=== PATIENT | male | born 1940 | race Caucasian/White ===

== ENCOUNTER → 2020-08-13 | Outpatient (CLI) | payer MEDICARE | END | disposition home or self-care (01) | LOC: RAH 09:45 | PROVIDERS: ATTEND Dermatology | DX: M25.48 Effusion, other site (principal); I80.8 Phlebitis and thrombophlebitis of other sites | CPT/HCPCS: 93971 ==

== ENCOUNTER 2023-07-24 18:22 | Emergency (ER) | payer MEDICARE ==
[~2023-07-24] VITALS: Ht 188 cm; Wt 86.2 kg
[2023-07-24 18:41] VITALS: BP 195/113; PULSE 76; RESP 16
[2023-07-24 19:16] LABS: BASOPHILS # (AUTO) 0.04 K/uL (0.00-0.20); BASOPHILS % (AUTO) 0.4 % (0.0-5.0); EOSINOPHILS # (AUTO) 0.03 K/uL (0.00-0.70); EOSINOPHILS % (AUTO) 0.3 % (0.0-8.0); HEMATOCRIT 48.2 % (42-54); IMMATURE GRANULOCYTE ABSOLUTE 0.05 K/uL (0-1); LYMPHOCYTES # (AUTO) 0.8 K/uL (1.0-4.8); LYMPHOCYTES % (AUTO) 6.6 % (21.0-51.0); MEAN CORPUSCULAR HGB CONC 34.4 g/dL (32.0-36.0); MEAN CORPUSCULAR VOLUME 89.9 fL (79-99); MONOCYTES # (AUTO) 0.7 K/uL (0.1-1.0); MONOCYTES % (AUTO) 6.5 % (3.0-13.0); NEUTROPHILS # (AUTO) 9.7 K/uL (1.8-7.7); NEUTROPHILS % (AUTO) 85.8 % (40.0-77.0); PLATELET COUNT (AUTO) 140 K/uL (130-400); RED BLOOD CELL COUNT(AUTO) 5.36 MIL/uL (4.50-6.20); RED CELL DISTRIBUTION WIDTH 12.6 % (11.0-15.5); WHITE BLOOD COUNT (AUTO) 11.3 K/uL (4.8-10.8)
[2023-07-24 19:33] LABS: CREATININE 1.1 mg/dL (0.5-1.5); POTASSIUM 4.4 mmol/L (3.5-5.1)
[2023-07-24 19:37] LABS: ALBUMIN 3.9 g/dL (3.5-5.0); BILIRUBIN,TOTAL 1.4 mg/dL (0.2-1.0); TOTAL PROTEIN, SERUM 8.3 g/dL (6.0-8.3)
[2023-07-29] MEDS ORDERED: FURO20TA4 PO (23:59)
[2023-07-29] MEDS ORDERED: APIX5TAB PO (23:59)
[2023-07-30] MEDS ORDERED: METO-391 PO
[2023-07-30] MEDS ORDERED: LISI20TA24 PO (00:01)
[2023-07-30] MEDS ORDERED: PRAV20TA4 PO (00:01)
[2023-07-30] MEDS ORDERED: AMIO200T68 PO (00:02)
== END 2023-07-24 22:48 | disposition left against medical advice (07) ==
LOC: EDH 18:22
DX: R07.9 Chest pain, unspecified (principal); Z53.21 Procedure and treatment not carried out due to patient leaving prior to being seen by health care provider
CPT/HCPCS: 36415; 71045; 80053; 83735; 84484; 85025; 93005; 99281

== ENCOUNTER → 2023-08-10 | Outpatient (CLI) | payer MEDICARE ==
[~2023-08-10] MED LIST: AMIO200T68 PO; FINA5TAB41 PO; FURO20TA4 PO; LISI20TA24 PO; METO-391 PO; PRAV20TA4 PO; REGADENOSON 0.4 MG/5 ML PF SYG IVP ONE; TAMS-1 PO
== END | disposition home or self-care (01) ==
LOC: SHCH 08:14
PROVIDERS: ATTEND Internal Medicine Cardiovascular Disease
DX: I44.7 Left bundle-branch block, unspecified (principal); R07.9 Chest pain, unspecified
CPT/HCPCS: 78452; 96374; 93017; J2785; A9500 ×2

== ENCOUNTER → 2024-07-17 | Outpatient (CLI) | payer MEDICARE ==
[~2024-07-17] MED LIST changes: -AMIO200T68 PO; +APIX5TAB PO; +DRON400T7 PO; -METO-391 PO; +METO50TA9 PO; -REGADENOSON 0.4 MG/5 ML PF SYG IVP ONE
[2024-07-17 16:37] LABS: CREATININE 1.1 mg/dL (0.5-1.3); POTASSIUM 4.4 mmol/L (3.5-5.1)
== END | disposition home or self-care (01) ==
LOC: LAB 14:32
PROVIDERS: ATTEND Student in an Organized Health Care Education/Training Program
DX: I44.7 Left bundle-branch block, unspecified (principal)
CPT/HCPCS: 36415; 80048

== ENCOUNTER → 2024-07-23 | Outpatient (CLI) | payer MEDICARE ==
[~2024-07-23] MED LIST changes: +IOHEXOL 350 MG/ML 100ML INFUS..BTL IV ONE
--- NOTE | 2024-07-23 13:06 | HMCIMG ---
CT CARDIAC ANGIO W/CONT. CCTA REASON: LEFT BUNDLE BRANCH BLOCK, UNSPEC COMPARISON: None TECHNIQUE: Images are obtained through the heart in the axial plane before and during bolus IV contrast infusion, 100 cc Omnipaque 350. 2-D and 3-D multiplanar reconstruction images were then performed. The injection had to be repeated once due to motion artifact on the first sequence, total contrast volume was 200 cc. FINDINGS: This dictation is for the noncardiac findings only. Cardiac and coronary artery findings are reported separately. Visualized portions of the lungs are clear. There is normal-appearing pulmonary interstitium. There is no hilar or mediastinal lymphadenopathy. Chest wall structures appear unremarkable. IMPRESSION: 1. Unremarkable noncardiac portions of CT cardiac angiography.
== END | disposition home or self-care (01) ==
LOC: RAH 10:36
PROVIDERS: ATTEND Student in an Organized Health Care Education/Training Program
DX: I44.7 Left bundle-branch block, unspecified (principal)
CPT/HCPCS: 75574; Q9967

== ENCOUNTER 2024-10-21 05:51 | Day surgery (SDC) | payer MEDICARE ==
--- NOTE | 2024-10-17 08:59 | EKG ---
[facility] Test Date: 2024-10-17 Test Time: 09:45:10 Pat Name: JESSICA RAMOS Department: [facility] Room: Gender: M Belt Splicer: [id number] : 1940 Requested By: DHARMESH SULLIVAN Order Number: [id number] Reading MD: Dharmesh Sullivan Measurements Intervals [place] Rate: 63 P: 0 MT: 0 QRS: -48 QRSD: 168 T: 108 QT: 485 QTc: 497 Interpretive Statements Junctional rhythm Left bundle branch block Compared to ECG 10/31/2023 10:46:51 Junctional rhythm now present Left bundle-branch block now present Sinus rhythm no longer present First degree AV block no longer present Left-axis deviation no longer present Myocardial infarct finding no longer present Electronically Signed On 10-20-2024 15:59:50 HYDROLOGIC ENGINEER by Dharmesh Sullivan Please click the below link to view image of tracing.
[2024-10-17 09:02] VITALS: BP 190/96; PULSE 66; RESP 18; TEMP 97.9
[2024-10-17 09:11] LABS: BASOPHILS # (AUTO) 0.05 K/uL (0.00-0.20); BASOPHILS % (AUTO) 0.8 % (0.0-5.0); EOSINOPHILS % (AUTO) 1.6 % (0.0-8.0); HEMATOCRIT 45.1 % (42-54); IMMATURE GRANULOCYTE ABSOLUTE 0.04 K/uL (0-1); LYMPHOCYTES # (AUTO) 1.1 K/uL (1.0-4.8); LYMPHOCYTES % (AUTO) 17.5 % (21.0-51.0); MEAN CORPUSCULAR HEMOGLOBIN 30.9 pg (27.0-33.0); MEAN CORPUSCULAR HGB CONC 34.1 g/dL (32.0-36.0); MEAN CORPUSCULAR VOLUME 90.4 fL (79-99); MONOCYTES # (AUTO) 0.5 K/uL (0.1-1.0); MONOCYTES % (AUTO) 8.5 % (3.0-13.0); NEUTROPHILS # (AUTO) 4.3 K/uL (1.8-7.7); NEUTROPHILS % (AUTO) 70.9 % (40.0-77.0); PLATELET COUNT (AUTO) 139 K/uL (130-400); RED BLOOD CELL COUNT(AUTO) 4.99 MIL/uL (4.50-6.20); RED CELL DISTRIBUTION WIDTH 12.2 % (11.0-15.5); WHITE BLOOD COUNT (AUTO) 6.1 K/uL (4.8-10.8)
[2024-10-17 09:12] LABS: APPEARANCE,URINE CLEAR (CLEAR); BILIRUBIN,URINE NEGATIVE (NEGATIVE); COLOR,URINE COLORLESS (YELLOW); GLUCOSE, URINE (UA) NEGATIVE (NEGATIVE); KETONES,URINE NEGATIVE (NEGATIVE); LEUKOCYTE ESTERASE ,URINE NEGATIVE Leu/uL (NEGATIVE); NITRATE,URINE NEGATIVE (NEGATIVE); PH,URINE 6.5 (5.0-8.0); PROTEIN,URINE NEGATIVE (NEGATIVE); UROBILINOGEN,URINE 0.2 mg/dL (0.2-1.0)
[2024-10-17 09:15] LABS: ADD UA MICROSCOPIC YES
[2024-10-17 09:16] LABS: SQUAMOUS EPITHELIAL CELL,UR RARE /HPF (0-2); WBC,URINE 0-1 /HPF (0-1)
[2024-10-17 09:25] LABS: INR 1.18 (0.85-1.15)
[2024-10-17 09:26] LABS: CREATININE 1.1 mg/dL (0.5-1.3); POTASSIUM 4.1 mmol/L (3.5-5.1)
[2024-10-17 09:36] LABS: B-TYPE NATRIURETIC PEPTIDE 288 pg/mL (0-100)
--- NOTE | 2024-10-17 10:16 | HMCIMG ---
CHEST 1VW REASON: PRE OP COMPARISON: 10/29/2023 FINDINGS: Single view of the chest was obtained. Lungs are clear. Heart size is normal. There is no pulmonary vascular congestion. Tortuous thoracic aorta is again noted Mediastinum and bony thorax appear unremarkable. IMPRESSION: 1. No acute process seen in chest.
--- NOTE | 2024-10-20 10:21 | NUR ---
RE: LABS REPORTED BMP RESULTS TO DR Nathen DEE, NO NEW ORDERS RECEIVED.
[~2024-10-21] VITALS: Ht 190.5 cm; Wt 87.8 kg
[2024-10-21] VITALS (11 sets, daily range): BP systolic 102–173; BP diastolic 70–85; PULSE 48–64; RESP 10–22; TEMP 97.2–97.4
[~2024-10-21 05:51] MED LIST changes: +AMIO200T68 PO; -DRON400T7 PO; -FURO20TA4 PO; +FURO40TA5 PO; -IOHEXOL 350 MG/ML 100ML INFUS..BTL IV ONE; +METO-391 PO; -METO50TA9 PO
[2024-10-21] MEDS: 0.9%NACL 1000ML 1,000 ML IV SCH (06:53)
[2024-10-21] MEDS ORDERED: LIDOCAINE HCL 400MG/20ML VIAL ONE (07:17)
[2024-10-21] MEDS ORDERED: VERAPAMIL HCL 2.5 MG/ML VIAL ONE (07:18)
[2024-10-21] MEDS ORDERED: IOHEXOL 350 MG/ML 100ML INFUS..BTL IV ONE ×2 (07:18→08:49)
[2024-10-21] MEDS ORDERED: HEParin 10,000 UNIT/10ML (1,000 UNIT/ML) VIAL ONE ×2 (07:18→10:53)
[2024-10-21] MEDS ORDERED: HEParin-NS 1,000 UNIT/500 ML 1,000 ML IV ONE (07:18)
[2024-10-21] MEDS ORDERED: NITROGLYCERIN 50MG VIAL ONE (07:19)
[2024-10-21] MEDS ORDERED: FENTanyl CITRate PF 50 MCG/1 ML 2ML VIAL ONE ×2 (07:39→10:05)
[2024-10-21] MEDS ORDERED: MIDAZOLAM HCL 1 MG/ML 2ML VIAL ONE ×3 (07:39→10:05)
[2024-10-21] MEDS ORDERED: ATROPINE 1MG SYG IVP ONE (07:46)
[2024-10-21] MEDS ORDERED: hydrALAZine 20MG/ML VIAL ONE (08:02)
[2024-10-21] MEDS ORDERED: cloPIDOgrel 300MG TAB ONE (08:16)
[2024-10-21] MEDS ORDERED: ASPIRIN 325MG EC TAB PO ONE (08:16)
[2024-10-21] MEDS ORDERED: IOHEXOL-350 50ML VIAL IV ONE (08:22)
[2024-10-21] MEDS ORDERED: DOPamine HCL 400 MG/D5%-WATER 0 ML IV ONE (09:03)
[2024-10-21] MEDS ORDERED: HEParin-NS 1,000 UNIT/500 ML 500 ML IV ONE (09:05)
[2024-10-21] MEDS ORDERED: DiphenhydrAMINE HCL 50 MG/ML VIAL ONE (09:41)
[2024-10-21] MEDS ORDERED: IOHEXOL-350 75 ML VIAL IV ONE (09:51)
[2024-10-21] MEDS ORDERED: NITROGLYCERIN 4.9GM SPRAY 60 SPRAY/BOT SPRY TL ONE (10:05)
[2024-10-21] MEDS ORDERED: 0.9%NACL 1000ML 1,000 ML IV SCH (11:00)
[2024-10-21] MEDS ORDERED: DEXTROSE 50%-WATER 50 ML DISP.SYRIN IV PRN (11:00)
[2024-10-21] MEDS ORDERED: GLUCAGON 1MG KIT 1 MG ML IM PRN (11:00)
--- NOTE | 2024-10-21 11:27 | PRN ---
PROCEDURE REPORT DATE OF PROCEDURE: Oct 21, 2024 CORK SLABS SAWYER: [ Dharmesh conte MD] PROCEDURE PERFORMED: Conscious sedation Ultrasound guided right radial artery access Selective left coronary artery angiogram Selective right coronary artery angiogram Left heart catheterization IVL/shockwave of the prox and mid LAD (2.5x12mm) Status post successful PTCI/IVL and PCI of the prox to mid LAD x3 (3 x 18, 3 x 18, and 3 x 8 mm anel Straughn drug-eluting stents), post dilated proximally w ith a 3.5 mm TR band 13 juwan over right radial artery INDICATION: Abnormal coronary CTA DESCRIPTION OF PROCEDURE: After informed consent was obtained, the patient was prepped and draped in the usual sterile fashion. A 6 [place] arterial sheath was inserted in the right radial artery using ultrasound guidance with first pass wall puncture. The arterial sheath was aspirated and flushed. A 6 [place] JL 3.5 was then advanced to the ascending aorta over an exchange length J-tip guidewire, was aspirated and flushed, and was used for selective coronary angiograms in multiple obliquities. A JR-4 was advanced in a similar fashion to the ascending aorta over the J-tipped guidewire and was used for selective right coronary angiograms in multiple oblique views with findings as outlined below. The JR-4 catheter advanced into the LV and pressures were obtained with a pull-back across the aortic valve. Following review of all the images decision was made to intervene on patient's critical heavily calcified LAD stenosis. We exchanged the diagnostic catheter for a 6 [place] XB 3 guide catheter which was advanced in similar fashion over the wire and engaged in the left main coronary artery. Given patient's significant calcified disease we advanced a Prowater within a fine cross microcatheter which was advanced into the distal LAD under fluoroscopic guidance. We exchanged the Prowater for a more supportive wiggle wire and we then advanced a GuideLiner for additional support. We then began to pre dilate using a 2 x 15 mm compliant balloon but we were met with significant resistance advancing any equipment. We are able to pre dilate the mid and prox to 14, 16, 22 a TM. We then proceeded with shockwave lithotripsy using a 2 x 12 mm shockwave balloon which was inflated to 4, 6 and a TM for a total of 8 lithotripsy sessions. We were unable to advance a stent so we then advanced a wolverine cutting balloon unable to advance the balloon any further beyond the ostium of the LAD. We then used a 3 x 15 mm noncompliant balloon which was inflated to super nominal pressures of 18, 20, and 22 JUWAN for a total of 20 seconds within the mid proximal and ostial LAD. We are then able to deploy a 3 x 18 mm anel Straughn drug-eluting stent in the proximal LAD to nominal pressures. We noted stent underexpansion of the proximal 20-30%. We then advanced a 3.5 x 6 mm noncompliant balloon which was inflated to 22 JUWAN for 20 seconds with improvement of stent underexpansion. We then deployed a 2nd 3 x 18 mm anel Straughn drug-eluting stent within the mid LAD to nominal pressures. And finally a 3 x 8 mm anel Straughn drug-eluting stent within the mid LAD in overlapping fashion to nominal pressures. These were post dilated with a 3 x 15 mm noncompliant balloon to nominal pressures. Given excessive contrast use and radiation at this point we decided to terminate the procedure we noted scientologist of ANGELA 3 flow with no dissections or perforations. All wires and catheters removed from the body and all wires and catheters removed from the body and mid A TR band was placed over right radial artery. FLUOROSCOPY TIME: 63.5 min LEFT HEART HEMODYNAMICS: LVEDP 17 mm Hg and no gradient Ao CORONARY ANGIOGRAM: LEFT MAIN: Calcified and Patent and 20-30% mid-distal stenosis. Gives rise to LCx and LAD. LEFT ANTERIOR DESCENDING: Large vessel giving rise to two Diagonal branches. Heavily calcified with 90- 95% proximal stenosis becoming 70 80% mid stenosis. Diagonals are small and patent LEFT CIRCUMFLEX: Large and gives rise to two OM branches. Calcified, dominant with 30 40% mid stenosis RIGHT CORONARY ARTERY: Small, nondominant with 100% proximal VMWARE SYSTEMS ADMINISTRATOR. HEMOSTASIS: TR band 12 juwan over right radial artery INTERVENTIONS: Status post successful PTCI/IVL and PCI of the prox to mid LAD x3 (3 x 18, 3 x 18, and 3 x 8 mm anel Straughn drug-eluting stents), post dilated proximally with a 3.5 mm COMPLICATIONS: None FINDINGS: Normal coronary anatomy and severe obstructive LAD disease status post successful revascularization x3 ESTIMATED BLOOD LOSS: 5 cc RECOMMENDATIONS/INSTRUCTIONS: Aggressive risk factor modification along with dapt (aspirin 81 mg q.day/Plavix 75 mg daily) for a total of 6 months in addition high-intensity statin therapy . CONTRAST DELIVERED TO PATIENT (mL): 405cc DHARMESH Rosenthal MD, MD Oct 21, 2024 11:27
[2024-10-21] MEDS ORDERED: CLOP-31 PO (13:37)
[2024-10-21] MEDS ORDERED: ASPI-449 PO (13:37)
--- NOTE | 2024-10-21 13:46 | NUR ---
1346 vasband removed at this time. dressed site with sterile 2x2 and coban.
--- NOTE | 2024-10-21 15:30 | NUR ---
Full and complete discharge instructions given to Patient and Family both verbally and in writing. Explained Cardiac Catheterization procedure precautions and follow up. All questions answered. PIV removed with catheter tip intact. Radial site and clean, dry without any sign of bleeding, hematoma. Quarter sized flat bruise evident to inner wrist. Marked with skin pen. Instructed and Patient to keep an eye on area. Redressed Radial site after cleansing with Chloro-prep and covered with a large tegaderm. Cobain as light reinforcement not to bend wrist. W/C to POV to Home with .
[2024-10-22] MEDS ORDERED: cloPIDOgrel 75MG TAB PO SCH (09:00)
[2024-10-22] MEDS ORDERED: ASPIRIN 81MG CHEW TAB PO SCH (09:00)
== END 2024-10-21 15:45 | disposition home or self-care (01) ==
LOC: DAH 05:51
PROVIDERS: ATTEND Student in an Organized Health Care Education/Training Program
DX: R93.1 Abnormal findings on diagnostic imaging of heart and coronary circulation (principal); I25.118 Atherosclerotic heart disease of native coronary artery with other forms of angina pectoris; I44.7 Left bundle-branch block, unspecified; E78.5 Hyperlipidemia, unspecified; I48.91 Unspecified atrial fibrillation; I11.0 Hypertensive heart disease with heart failure; I50.9 Heart failure, unspecified; I71.21 Aneurysm of the ascending aorta, without rupture; Z79.01 Long term (current) use of anticoagulants; Z79.899 Other long term (current) drug therapy
CPT/HCPCS: 80048; 83880; 85025; 85610; 85730; 81001; 36415 ×2; 71045; 93005; 92972; 85347 ×5; 93458; C9600; C1769 ×5; C1725 ×7; C1874 ×3; C1887 ×3; C1894; A4649; C1753; J1200; J3010 ×2; J3490 ×3; J7030; J0360; J1644 ×4; J2250 ×3; Q9967 ×4; A4215; A4222; A4221; A4663; A4216; A4606; Q9965 ×3; C1761 ×2; A4223 ×3; 96360; 96361; 99156; 99157; J0461; J1265